=== PATIENT | male | born 1960 | race African-American/Black ===

== ENCOUNTER 2019-08-29 14:51 | Emergency (ER) | payer OTHER ==
[2019-08-29 15:01] VITALS: BP 128/83; PULSE 83; TEMP 98.1; BMI 26.2
[2019-08-29] MEDS ORDERED: KETOROLAC TROMETHAMINE 30 MG/1 ML VIAL IM ONE (15:07)
[2019-08-29] MEDS ORDERED: KETOROLAC TROMETHAMINE 30 MG/1 ML VIAL ONE (15:09)
--- NOTE | 2019-08-29 15:14 | PDOC ---
History of Present Illness - General Chief Complaint: Injury Stated Complaint: FALL Time Seen by Provider: 08/29/19 15:02 History Source: Patient Exam Limitations: Clinical Condition - History of Present Illness Initial Comments: 08/29/19 15:10 Patient with no significant past medical history present with complaint of left lower rib cage pain status post slip and fall yesterday on a curbside hitting left side of rib on the ground. Patient report increased pain to lateral aspect of left rib with movement. Denies shortness of breath, palpitation, skin bruising. Patient did not take anything for pain. Denies any other symptoms Occurred: reports: yesterday Pain Location: reports: other (left ribcage) Method of Injury: Yes: fall Past History - Past Medical History Allergies/Adverse Reactions: Allergies Allergy/AdvReac Type Severity Reaction Status Date / Time No Known Allergies Allergy Verified 08/29/19 14:59 Home Medications: Ambulatory Orders Methadone HCl 40 mg PO DAILY 08/29/19 Methocarbamol [Robaxin -] 500 mg PO TID #21 tablet 08/29/19 Naproxen 500 mg PO BID PRN #20 tablet 08/29/19 - Psycho Social/Smoking Cessation Hx Smoking History: Current every day smoker Number of Cigarettes Smoked Daily: 6 Information on smoking cessation initiated: Yes Hx Alcohol Use: No Drug/Substance Use Hx: (MMTP) Review of Systems - Review of Systems Able to Perform ROS?: Yes Is the patient limited Telugu proficient: No Constitutional: No: Fever, Malaise, Weakness HEENTM: No: Symptoms Reported, See HPI, Eye Pain, Blurred Vision, Tearing, Recent change in vision, Double Vision, Cataracts, Ear Pain, Ocular Prothesis, Ear Discharge, Nose Pain, Nose Congestion, Tinnitus, Nose Bleeding, Hearing Loss , Throat Pain, Throat Swelling, Mouth Pain, Dental Problems, Difficulty Swallowing, Mouth Swelling, Other Respiratory: No: Symptoms reported, See HPI, Cough, Orthopnea, Shortness of Breath, SOB with Exertion, SOB at Rest, Stridor, Wheezing, Productive cough, Hemoptysis, Other Cardiac (ROS): No: Symptoms Reported, See HPI, Chest Pain, Edema, Irregular Heart Rate, Lightheadedness, Palpitations, Syncope, Chest Tightness, Other ABD/GI: No: Symptoms Reported, Nausea, Vomiting Musculoskeletal: Yes: Symptoms Reported, See HPI, Muscle Pain (left lower ribcage pain) Integumentary: No: Symptoms Reported, Bruising, Erythema All Other Systems: Reviewed and Negative *Physical Exam - Vital Signs Last Vital Signs Temp Pulse Resp BP Pulse Ox 98.1 F 83 16 128/83 98 08/29/19 14:59 08/29/19 14:59 08/29/19 14:59 08/29/19 14:59 08/29/19 14:59 - Physical Exam 08/29/19 15:13 GENERAL: Well developed, well nourished. Awake and alert in moderate acute distress. CARDIOVASCULAR: Regular rate and rhythm. No murmurs, rubs, or gallops. PULMONARY: No evidence of respiratory distress. Lungs clear to auscultation bilaterally. No wheezing, rales or rhonchi. ABDOMINAL: Soft. Non-tender. Non-distended. No rebound or guarding. No organomegaly. Normoactive bowel sounds MUSCULOSKELETAL : Moderate tenderness to lower left rib cage over 11 and 12 ribs on lateral side. No visible bruising or ecchymosis to skin of abdominal wall chest wall. SKIN: Warm and dry. Normal capillary refill. No bruising or ecchymosis. NEUROLOGICAL: Alert, awake, appropriate. No motor deficits in the lower extremities. Gait is normal without ataxia. PSYCHIATRIC: Cooperative. Good eye contact. Appropriate mood and affect. General Appearance: Yes: Nourished, Appropriately Dressed, Apparent Distress, Moderate Distress ED Treatment Course - RADIOLOGY Radiology Studies Ordered: Category Date Time Status RIBS-LEFT SIDE [RAD] Stat Radiology 08/29/19 15:07 Ordered Medical Decision Making - Medical Decision Making 08/29/19 15:11 Patient with no significant past medical history present with complaint of left lower rib cage pain status post slip and fall yesterday on a curbside hitting left side of rib on the ground. Patient report increased pain to lateral aspect of left rib with movement. Denies shortness of breath, palpitation, skin bruising. Patient did not take anything for pain. Denies any other symptoms Exam significant for moderate point tenderness to lateral of left lower rib cage over 11-12 ribs. No visible deformity. No skin bruising or ecchymosis. Symptoms likely rib contusion versus less likely fracture. Toradol 30 mg IM ordered for pain. Left rib series ordered to rule out rib fracture 08/29/19 16:11 Rib series shows no acute fracture. Patient symptoms likely rib contusion. Left rib wrapped with 6 inch Douglas bandage. Robaxin thousand milligrams given for spasm. Patient stable for discharge and naproxen as needed for pain Robaxin for spasm with advised to do hot compress as needed for pain with PCP follow-up Discharge - Discharge Information Problems reviewed: Yes Clinical Impression/Diagnosis: Rib contusion Qualifiers: Encounter type: initial encounter Laterality: left Qualified Code(s): S20.212A - Contusion of left front wall of thorax, initial encounter Condition: Stable Disposition: HOME - Admission No - Additional Discharge Information Prescriptions: Methocarbamol [Robaxin -] 500 mg PO TID #21 tablet Naproxen 500 mg PO BID PRN #20 tablet PRN Reason: pain - Follow up/Referral Referrals: Edward Gaytan MD [Primary Care Provider] - - Patient Discharge Instructions Patient Printed Discharge Instructions: DI for Rib Contusion Additional Instructions: Rib x-ray shows no fracture. Pain symptoms likely rib contusion. Take prescribed medication as prescribed for pain and spasm. Apply heat to rib area 2-3 times a day as needed for pain. Follow-up with primary care as needed - Post Discharge Activity
[2019-08-29] MEDS ORDERED: METHOCARBAMOL 500 MG TABLET ONE ×2 (15:20→16:03)
[2019-08-29] MEDS: METHOCARBAMOL 500 MG TABLET PO ONE ×2 (15:20→16:05)
== END 2019-08-29 16:42 | disposition home or self-care (01) ==
LOC: JERFT 14:51
PROC: 3E0233Z Introduction of Anti-inflammatory into Muscle, Percutaneous Approach (ICD-10-PCS; principal; 2019-08-29)
DX: S20.212A Contusion of left front wall of thorax, initial encounter (principal); W10.1XXA Fall (on)(from) sidewalk curb, initial encounter; Y93.89 Activity, other specified; Y92.480 Sidewalk as the place of occurrence of the external cause; Y99.8 Other external cause status
CPT/HCPCS: 71101-TC-LT-FY; 99284-25